=== PATIENT | female | born 1985 | race Caucasian/White ===

== ENCOUNTER 2020-04-18 08:42 | Outpatient (CLI) | payer OTHER ==
[2020-04-18 09:35] LABS: BASOPHILS # (AUTO) 0.03 x10^3/uL (0-0.1); BASOPHILS % (AUTO) 1 % (0-1); EOSINOPHILS % (AUTO) 2 % (1-7); LYMPHOCYTES # (AUTO) 1.67 x10^3/uL (1-3.4); LYMPHOCYTES % (AUTO) 29 % (22-44); MD NO; MEAN CORPUSCULAR HEMOGLOBIN 32.9 pg (27.0-34.8); MEAN CORPUSCULAR HGB CONC 33.8 g/dL (32.4-35.8); MEAN CORPUSCULAR VOLUME 97.3 fL (80-100); MEAN PLATELET VOLUME 7.6 fL (7.4-10.4); MONOCYTES # (AUTO) 0.35 x10^3/uL (0.2-0.8); MONOCYTES % (AUTO) 6 % (2-9); NEUTROPHILS % (AUTO) 63 % (42-75); PLATELET COUNT 260 x10^3/uL (130-400); RED BLOOD COUNT 4.72 x10^6/uL (3.82-5.3); RED CELL DISTRIBUTION WIDTH 13.2 % (9.6-15.2)
[2020-04-18 09:39] LABS: MICROSCOPIC NOT IND
[2020-04-18 09:45] LABS: ALANINE AMINOTRANSFERASE 15 U/L (12-78); ALBUMIN 4.2 g/dL (3.4-5.0); ANION GAP 6 mmol/L (5-15); CALCIUM 9.1 mg/dL (8.5-10.1); CHLORIDE 106 mmol/L (98-107)
[2020-04-18 09:50] LABS: ALKALINE PHOSPHATASE 75 U/L (45-117); BILIRUBIN,TOTAL 1.1 mg/dL (0.2-1.0); CREATININE 0.88 mg/dL (0.55-1.02); TOTAL PROTEIN 7.7 g/dL (6.4-8.2)
== END 2020-04-18 23:59 | disposition home or self-care (01) ==
LOC: STAR 08:42
PROVIDERS: ATTEND Obstetrics & Gynecology Gynecology
DX: Z01.818 Encounter for other preprocedural examination (principal); N83.291 Other ovarian cyst, right side
CPT/HCPCS: 36415; 80053; 81003; 84703; 85025

== ENCOUNTER 2020-04-22 05:19 | Day surgery (SDC) | payer OTHER ==
[~2020-04-22] VITALS: Ht 167.6 cm; Wt 59.0 kg
[2020-04-22] MEDS ORDERED: LACTATED RINGERS 1,000 ML IV SCH (05:50)
[2020-04-22 05:51] VITALS: BP 136/89
[2020-04-22] MEDS ORDERED: CHLORHEXIDINE 15 ML UDC ONE (05:58)
[2020-04-22] MEDS ORDERED: CHLORHEXIDINE 15 ML UDC MM ONE (06:00)
[2020-04-22 06:31] LABS: HCG UR SG 1.019 (1.003-1.030)
[2020-04-22] MEDS ORDERED: LIDOCAINE 1%-EPI 1:100K, 20ML ONE (06:59)
[2020-04-22] MEDS ORDERED: METHYLENE BLUE 10 MG/ML 10ML ONE (06:59)
[2020-04-22] MEDS ORDERED: FLUORESCEIN SODIUM 500 MG/5 ML ONE (06:59)
[2020-04-22] MEDS ORDERED: MIDAZOLAM 1 MG/ML, 2ML ONE (07:20)
[2020-04-22] MEDS ORDERED: FENTANYL PF 250 MCG/5ML ONE (07:20)
[2020-04-22] MEDS ORDERED: KETOROLAC 30 MG/1 ML ONE (07:27)
[2020-04-22] MEDS ORDERED: PROMETHAZINE 25 MG/ML, 1ML IVPush PRN (07:30)
[2020-04-22] MEDS ORDERED: DIPHENHYDRAMINE 50 MG/ML, 1ML IVPush PRN (07:30)
[2020-04-22] MEDS ORDERED: GABAPENTIN 300 MG CAPSULE PO ONE (07:30)
[2020-04-22] MEDS ORDERED: HYDROmorphone 1 MG/ML, 1ML INJ IVPush PRN (07:30)
[2020-04-22] MEDS ORDERED: HALOPERIDOL 5 MG/ML IV PRN (07:30)
[2020-04-22] MEDS ORDERED: FENTANYL PF 100 MCG/2ML IV PRN (07:30)
[2020-04-22] MEDS ORDERED: OXYcodone 5 MG/5 ML ORAL.SOL UDC PO PRN (07:30)
[2020-04-22] MEDS ORDERED: ACETAMINOPHEN 500 MG TABLET PO ONE (07:30)
[2020-04-22] MEDS ORDERED: hydrALAzine 20 MG/ML, 1ML IV PRN (07:30)
[2020-04-22] MEDS ORDERED: LABETALOL 5MG/ML, 20ML IV PRN (07:30)
[2020-04-22] MEDS ORDERED: SCOPOLAMINE 1MG PATCH TD ONE (07:30)
[2020-04-22] MEDS ORDERED: MEPERIDINE/PF 25MG/0.5ML IVPush PRN (07:30)
[2020-04-22] MEDS ORDERED: ROCURONIUM 10MG/ML,5ML ONE (08:29)
[2020-04-22] MEDS ORDERED: CEFAZOLIN 1,000 MG ONE (08:29)
[2020-04-22] MEDS ORDERED: DEXAMETHASONE 4 MG/ML, 1ML ONE (08:29)
[2020-04-22] MEDS ORDERED: NEOSTIGMINE 1 MG/ML, 10ML ONE (08:29)
[2020-04-22] MEDS ORDERED: ONDANSETRON 2MG/ML, 2ML ONE (08:29)
[2020-04-22] MEDS ORDERED: SUCCINYLCHOLINE 20 MG/ML, 10ML ONE (08:29)
[2020-04-22] MEDS ORDERED: GLYCOPYRROLATE 0.2MG/1ML, 5ML ONE (08:29)
[2020-04-22] MEDS ORDERED: PROPOFOL 10 MG/ML, 20ML ONE (08:29)
[2020-04-22] MEDS ORDERED: MEPERIDINE/PF 25MG/ML,1ML ONE (08:59)
== END 2020-04-22 10:40 | disposition home or self-care (01) ==
LOC: OUT 05:19
PROVIDERS: ATTEND Obstetrics & Gynecology Gynecology
DX: D27.0 Benign neoplasm of right ovary (principal); Z11.59 Encounter for screening for other viral diseases; E03.9 Hypothyroidism, unspecified; G43.909 Migraine, unspecified, not intractable, without status migrainosus; Z72.89 Other problems related to lifestyle; Z87.891 Personal history of nicotine dependence; Z98.890 Other specified postprocedural states; Z82.49 Family history of ischemic heart disease and other diseases of the circulatory system
CPT/HCPCS: 58662; 81025; 88112; 88305; J0330; J1100; J1885; J2175; J2250; J2405; J2704; J2710; J3010; J3490; J7120; U0001; J0690; Q9968